=== PATIENT | female | born 1960 | race Caucasian/White ===

== ENCOUNTER 2017-02-09 18:17 | Emergency (ER) | payer OTHER ==
[~2017-02-09] VITALS: Ht 157.5 cm; Wt 50.0 kg
[2017-02-09 18:18] VITALS: Ht 157.5 cm; Wt 50.0 kg
[2017-02-09] MEDS ORDERED: morphine 4 MG/ML VIAL IV STA (20:15)
[2017-02-09] MEDS ORDERED: ONDANSETRON 4 MG INJ IV STA (20:15)
[2017-02-09] MEDS ORDERED: SOD CHLORIDE 0.9% 1,000 ML IV STA (20:15)
[2017-02-09] MEDS ORDERED: LIDOCAINE/MYLANTA 40 ML BTL PO ONE (20:30)
[2017-02-09 20:50] LABS: BASOPHILS % 0.4 % (0.0-2.0); EOSINOPHILS % 0.2 % (0.0-7.0); HEMOGLOBIN 13.4 g/dl (12.0-16.0); LYMPHOCYTES # 2.4 10^3/ul (0.8-2.9); LYMPHOCYTES % 26.2 % (15.0-51.0); MEAN CORPUSCULAR HEMOGLOBIN 27.4 pg (29.0-33.0); MEAN CORPUSCULAR HGB CONC 33.5 g/dl (32.0-37.0); MEAN CORPUSCULAR VOLUME 81.8 fl (82.0-101.0); MEAN PLATELET VOLUME 11.1 fl (7.4-10.4); MONOCYTE # 0.8 10^3/ul (0.3-0.9); MONOCYTES % 8.5 % (0.0-11.0); NEUTROPHILS % 64.5 % (39.0-77.0); PLATELET COUNT 303 10^3/UL (140-415); RED BLOOD COUNT 4.89 10^6/ul (4.20-5.40); WHITE BLOOD COUNT 9.3 10^3/ul (4.8-10.8)
[2017-02-09 21:08] LABS: ALANINE AMINOTRANSFERASE 48 IU/L (13-69); ALBUMIN 4.7 g/dl (3.3-4.9); ALBUMIN/GLOBULIN RATIO 1.09; ALKALINE PHOSPHATASE 82 IU/L (42-121); ANION GAP 13 (8-16); ASPARTATE AMINO TRANSFERASE 36 IU/L (15-46); BILIRUBIN,INDIRECT 0.3 mg/dl (0-1.1); BILIRUBIN,TOTAL 0.3 mg/dl (0.2-1.3); BLOOD UREA NITROGEN 11 mg/dl (7-20); CALCIUM 9.8 mg/dl (8.4-10.2); CARBON DIOXIDE 28 mmol/L (21-31); CHLORIDE 99 mmol/L (97-110); CREATININE 0.71 mg/dl (0.44-1.00); GLUCOSE 124 mg/dl (70-220); POTASSIUM 3.4 mmol/L (3.5-5.1); SODIUM 137 mmol/L (135-144)
[2017-02-09 21:15] LABS: ADD UMIC YES; UR ASCORBIC ACID NEGATIVE (NEGATIVE); UR BILIRUBIN (Dip) NEGATIVE (NEGATIVE); UR BLOOD (Dip) 2+ mg/dL (NEGATIVE); UR CLARITY CLEAR (CLEAR); UR COLOR STRAW (YELLOW); UR GLUCOSE (Dip) NEGATIVE (NEGATIVE); UR KETONES (Dip) NEGATIVE (NEGATIVE); UR LEUKOCYTE ESTERASE (Dip) NEGATIVE Leu/ul (NEGATIVE); UR NITRITE (Dip) NEGATIVE (NEGATIVE); UR RBC 2 /HPF (0-5); UR SPECIFIC GRAVITY (Dip) 1.005 (1.003-1.030); UR TOTAL PROTEIN (Dip) NEGATIVE (NEGATIVE); UR UROBILINOGEN (Dip) NEGATIVE (NEGATIVE)
[2017-02-09 21:22] LABS: TROPONIN-I < 0.012 ng/ml (0.00-0.12)
--- NOTE | 2017-02-09 22:11 | RADRPT ---
PROCEDURE: US Abdomen (right upper quadrant). CLINICAL INDICATION: Right upper quadrant abdomen pain. TECHNIQUE: Multiple real-time longitudinal and transverse images of the right upper quadrant of th e abdomen were acquired utilizing a curved array transducer. Images were reviewed on a high-resoluti on PACS workstation. COMPARISON: None FINDINGS: The liver is normal in size and normal in echogenicity. There is no focal hepatic lesion. Color Doppler and pulsed Doppler sonography demonstrate normal an tegrade flow in the portal vein. The gallbladder is normal with no stones or wall thickening. There is no pericholecystic fluid rachael ection. The bile ducts are normal with the common bile duct measuring 4.4 mm in diameter. The visualized portions of the pancreas are unremarkable with obscuration of the tail of the pancrea s. No free fluid is present. The right kidney measures cm. There is normal echogenicity of the right kidney. There is no chavez nephric fluid collection. No hydronephrosis, mass, or calculus is seen. IMPRESSION: 1. Unremarkable right upper quadrant abdomen ultrasound. RPTAT: QQ .Sheldon Alanis MD, MD Date Time Electronically viewed and signed by .Sheldon Alanis MD, on 02/09/2017 22:11 .R/
--- NOTE | 2017-02-09 22:20 | RADRPT ---
PROCEDURE: CT ABDOMEN AND PELVIS WITHOUT CONTRAST. CLINICAL INDICATION: Abdominal pain TECHNIQUE: CT scan of the abdomen and pelvis without contrast was performed on a multidetector hig h-resolution CT scanner. The patient was scanned without intravenous contrast. Coronal and sagittal reformatted images were obtained from the axial source images. Images were reviewed on a high-resol [employer] PACS workstation. The total exam CTDI equals 4.2 mGy and the total exam DLP equals 202.4 mGy-c m. One or more of the following dose reduction techniques were used: Automated exposure control. Adjustment of the mA and/or kV according to patient size. Use of iterative reconstruction technique. COMPARISON: None FINDINGS: CT abdomen: The lung bases are clear. The heart size is within limits. There is no significant pericardial effus ion. Hepatic morphology is within normal limits. No gross contour deforming masses. The gallbladder is wi thin normal limits. No evidence of intrahepatic or extrahepatic biliary dilatation. The spleen and pancreas are within normal limits. Both adrenal glands are within normal limits. Both kidneys are in normal anatomic position. No evidence of obstruction or hydronephrosis. No gross renal/ureteric calculi. The visualized GI tract demonstrate a focal dilated loop of small bowel with air-fluid level and bow el wall thickening within the upper abdomen, seen on image number 64 series 3, and within the left l ower abdomen, seen on image number 103 of series 3 The appendix is not clearly identified, however n o inflammatory changes within the right lower quadrant. The unenhanced aorta is unremarkable. No significant retroperitoneal lymphadenopathy. CT pelvis: The bladder is distended and appears to within normal limits. The uterus is retroverted, with fluid within the endometrial canal. No significant free fluid. No significant pelvic lymphadenopathy. The visualized osseous structures appear to be within normal limits. IMPRESSION: 1. There is a focal dilated loop of small bowel with air-fluid level and bowel wall thickening withi n the upper abdomen and mild focal dilated fluid filled loop of small bowel within the left lower ab domen. FINDINGS MAY REPRESENT FOCAL ENTERITIS AND ILEUS. 2. No gross evidence of bowel obstruction. The appendix is not clearly identified, however no inflam matory change in the right lower quadrant. 3. No free fluid or free air. No gross focal fluid collections. The remainder of the CT scan abdomen /pelvis is unremarkable. RPTAT: AAPP Physician Betty Date Time Electronically viewed and signed by Nolan Wood Physician on 02/09/2017 22:20 JONATHON/
[2017-02-09] MEDS ORDERED: IBUP-1542 PO (22:35)
[2017-02-09] MEDS ORDERED: ONDA4TAB14 PO (22:35)
--- NOTE | 2017-02-09 22:37 | ERD ---
ER Documentation Chief Complaint Date/Time DATE: 02/09/17 TIME: 22:37 Chief Complaint epigastric pain x 4 days HPI Patient is a 56-year-old female with no medical problems who presents with abdominal pain. She has epigastric pain which started 4 days ago. She said that she had H pylori in 2007 and it felt similar. She has constant and sharp pain. She has had no treatment as of yet. Upon review of old medical records this is the patient's first visit to the emergency department. She says that her primary doctor is Dr. Marcial. ROS All systems reviewed and are negative except as per history of present illness. Medications Home Meds Active Scripts Ondansetron (Ondansetron Odt) 4 Mg Tab.rapdis, 4 MG PO Q6H Y for NAUSEA AND/OR VOMITING, #10 TAB Prov:BARB STRICKLAND MD 02/09/17 Ibuprofen* (Motrin*) 600 Mg Tab, 600 MG PO Q6H Y for PAIN AND OR ELEVATED TEMP, #30 TAB Prov:BARB STRICKLAND MD 02/09/17 Allergies Allergies: Coded Allergies: No Known Allergy (Unverified , 02/09/17) PMhx/Soc History of Surgery: Yes (appendectomy , , hernia repair ) Hx Miscellaneous Medical Probl: Yes (gerd) Hx Alcohol Use: No Hx Substance Use: No Hx Tobacco Use: No Smoking Status: Never smoker FmHx Family History: No diabetes Physical Exam Vitals Vital Signs Date Time Temp Pulse Resp B/P Pulse Ox O2 Delivery O2 Flow Rate FiO2 02/09/17 20:43 90 17 132/76 100 Room Air 02/09/17 18:18 98.1 113 18 131/80 99 Physical Exam Const: Mild distress secondary to pain Head: Atraumatic Eyes: Normal Conjunctiva ENT: Normal External Ears, Nose and Mouth. Neck: Full range of motion..~ No meningismus. Resp: Clear to auscultation bilaterally Cardio: Regular rate and rhythm, no murmurs Abd: Soft, epigastric tenderness to palpation without rebound or guarding Skin: No petechiae or rashes Back: No midline or flank tenderness Ext: No cyanosis, or edema Neur: Awake and alert Psych: Normal Mood and Affect Result Diagram: 02/09/17201902/09/172019 Results 24 hrs Laboratory Tests Test 02/09/17 20:20 White Blood Count 9.310^3/ul Red Blood Count 4.8910^6/ul Hemoglobin 13.4g/dl Hematocrit 40.0% Mean Corpuscular Volume 81.8fl Mean Corpuscular Hemoglobin 27.4pg Mean Corpuscular Hemoglobin Concent 33.5g/dl Red Cell Distribution Width 14.0% Platelet Count 09207^3/UL Mean Platelet Volume 11.1fl Neutrophils % 64.5% Lymphocytes % 26.2% Monocytes % 8.5% Eosinophils % 0.2% Basophils % 0.4% Nucleated Red Blood Cells % 0.0/100WBC Neutrophils # 6.010^3/ul Lymphocytes # 2.410^3/ul Monocytes # 0.810^3/ul Eosinophils # 0.010^3/ul Basophils # 0.010^3/ul Nucleated Red Blood Cells # 0.010^3/ul Urine Color STRAW Urine Clarity CLEAR Urine pH 6.0 Urine Specific [place] 1.005 Urine Ketones NEGATIVEmg/dL Urine Nitrite NEGATIVEmg/dL Urine Bilirubin NEGATIVEmg/dL Urine Urobilinogen NEGATIVEmg/dL Urine Leukocyte Esterase NEGATIVELeu/ul Urine Microscopic RBC 2/HPF Urine Microscopic WBC 0/HPF Urine Hemoglobin 2+mg/dL Urine Glucose NEGATIVEmg/dL Urine Total Protein NEGATIVEmg/dl Sodium Level 137mmol/L Potassium Level 3.4mmol/L Chloride Level 99mmol/L Carbon Dioxide Level 28mmol/L Anion Gap 13 Blood Urea Nitrogen 11mg/dl Creatinine 0.71mg/dl Glucose Level 124mg/dl Calcium Level 9.8mg/dl Total Bilirubin 0.3mg/dl Direct Bilirubin 0.00mg/dl Indirect Bilirubin 0.3mg/dl Aspartate Amino Transf (AST/SGOT) 36IU/L Alanine Aminotransferase (ALT/SGPT) 48IU/L Alkaline Phosphatase 82IU/L Troponin I < 0.012ng/ml Total Protein 9.0g/dl Albumin 4.7g/dl Globulin 4.30g/dl Albumin/Globulin Ratio 1.09 Lipase 65U/L Current Medications Medications (Trade) Dose Ordered Sig/Alice Route PRN Reason Start Time Stop Time Status Last Admin Dose Admin Sodium Chloride (NS) 1,000 ml @ 1,000 mls/hr Q1H STAT IV 02/09/17 20:15 02/09/17 21:14 DC 02/09/17 20:27 Morphine Sulfate (morphine) 4 mg ONCE STAT IV 02/09/17 20:15 02/09/17 20:17 DC 02/09/17 20:27 Ondansetron HCl (Zofran Inj) 4 mg ONCE STAT IV 02/09/17 20:15 02/09/17 20:17 DC 02/09/17 20:27 Miscellaneous Medication (Gi Cocktail (2)) 40 ml ONCE ONCE PO 02/09/17 20:30 02/09/17 20:31 DC 02/09/17 20:34 Procedures/MDM EKG read by me: Rate/Rhythm: Sinus tachycardia at a rate of 101 Intervals: Normal Impression: Sinus tachycardia CT abdomen and pelvis shows enteritis per radiology. Ultrasound the gallbladder shows no cholecystitis per radiology. Patient is a 56-year-old female who presents with abdominal pain. EKG did not show any signs of acute cardiac issue. CT scan shows enteritis and possible ileus. Ultrasound shows no cholecystitis. At this point I doubt appendicitis, cholecystitis, pancreatitis, or bowel obstruction. I believe outpatient management is appropriate at this time. The patient be given a prescription for pain and nausea medications. She can return for any worsening symptoms. She will be provided with copies of her laboratory studies and imaging test results. Departure Diagnosis: Primary Impression: Abdominal pain Abdominal location: epigastric Qualified Code: R10.13 - Epigastric pain Condition: Fair Patient Instructions: Abdominal Pain Referrals: Dr. Marcial Additional Instructions: Llame al doctor ERNESTINA y jayla laurent NIC PARA DENTRO DE 1-2 DOSHI.Dgale a la secretaria que nosotros le instruimos hacer esta nic.Avise o llame si tay condicin se empeora antes de la nic. Regresa aqui si peor o no mejor. BARB STRICKLAND MD Feb 09, 2017 22:37
[2017-02-09 22:42] VITALS: BP 128/76; PULSE 90; RESP 17; TEMP 98.1
== END 2017-02-09 22:45 | disposition home or self-care (01) ==
LOC: E/R 18:17
DX: R10.13 Epigastric pain (principal)
CPT/HCPCS: 36415; 74176; 76705; 80053; 81001; 83690; 84484; 85025; 93005; 96374; 96375; J2270; J2405; J7030; Z7502; Z7610